=== PATIENT | female | born 1980 | race Caucasian/White ===

== ENCOUNTER 2019-06-12 14:59 | Inpatient (IN) | payer OTHER ==
[~2019-06-12] VITALS: Ht 160 cm; Wt 63.5 kg
[2019-06-12 15:33] VITALS: BP 114/71
[2019-06-12] MEDS ORDERED: KETOROLAC 60 MG/2 ML VIAL IM ONE (16:00)
[2019-06-12] MEDS ORDERED: ONDANSETRON 4 MG ODT PO ONE (16:00)
--- NOTE | 2019-06-12 16:00 | NUR ---
C/O MID ABDOMINAL PAIN 03/12 WITH N/V SINCE YESTERDAY. SEEN AT [facility] FOR US AND WAS TOLD SHE HAD GALLSTONE X 3 MONTHS AGO. BOWEL SOUNDS ACTIVE IN ALL 4 QUADRANTS. ABDOMEN SOFT AND FLAT. MILD TENDERNESS. PT ALERT AND AWAKE. VS STABLE. AMBUALTORY PMH- GALLSTONES HISTORY RX- DENIES
--- NOTE | 2019-06-12 16:10 | NUR ---
LAB AT BEDSIDE
--- NOTE | 2019-06-12 16:15 | NUR ---
TORADOL IM AND ZOFRAN PO ADMINISTERED
[2019-06-12 16:19] LABS: BASOPHILS # (AUTO) 0.1 K/uL (0.00-0.22); BASOPHILS % (AUTO) 0.5 % (0.0-2.0); EOSINOPHILS # (AUTO) 0.1 K/uL (0-0.4); EOSINOPHILS % (AUTO) 1.2 % (0.0-4.0); HEMATOCRIT 38.8 % (36-48); HEMOGLOBIN 12.7 g/dL (12.0-16.0); LYMPHOCYTES # (AUTO) 1.2 K/uL (2.5-16.5); LYMPHOCYTES % (AUTO) 9.7 % (20.5-51.1); MEAN CORPUSCULAR HEMOGLOBIN 30 pg (27-31); MEAN CORPUSCULAR HGB CONC 33 g/dL (33-37); MEAN CORPUSCULAR VOLUME 91.2 fL (80-94); MONOCYTES # (AUTO) 0.6 K/uL (0.8-1.0); MONOCYTES % (AUTO) 4.9 % (1.7-9.3); NEUTROPHILS % (AUTO) 83.7 % (42.2-75.2); PLATELET COUNT (AUTO) 369 K/uL (140-450); RED BLOOD CELL COUNT(AUTO) 4.25 MIL/uL (4.20-5.40); RED CELL DISTRIBUTION WIDTH 13.4 % (11.6-13.7)
--- NOTE | 2019-06-12 16:22 | NUR ---
PT MOVED TO BED 12
--- NOTE | 2019-06-12 16:38 | NUR ---
PAIN 4/10 PER PATIENT. NADR
[2019-06-12 17:11] LABS: ALBUMIN 3.9 g/dL (3.4-5.0); ANION GAP 13.7 (8-16); CARBON DIOXIDE 28.8 mmol/L (21-32); CREATININE 0.6 mg/dL (0.6-1.3); POTASSIUM 4.5 mmol/L (3.5-5.1); TOTAL BILIRUBIN 3.4 mg/dL (0.0-1.0)
[2019-06-12] MEDS: NACL 0.9% 1,000 ML IV SCH (17:39)
[2019-06-12] MEDS ORDERED: MORPHINE SULFATE 2 MG/ML SYR IVP PRN (17:40)
[2019-06-12] MEDS ORDERED: DOCUSATE SODIUM 100 MG GELCAP PO PRN (17:40)
[2019-06-12] MEDS ORDERED: ACETAMINOPHEN 325 MG TAB PO PRN (17:40)
[2019-06-12] MEDS ORDERED: HYDROcodone/APAP 7.5/325 MG 1 TAB PO PRN (17:40)
--- NOTE | 2019-06-12 17:47 | NUR ---
US AT BEDSIDE
--- NOTE | 2019-06-12 18:15 | NUR ---
Patient will be admitted to care of [facility]. Admited to MEDSUR. Will go to room 111A. Belongings list completed. Report to ADRIENNE ROSALES. PT NPO EXCEPT MEDS PT REPORTS NO HOME MEDS BELONGS WITH PT
--- NOTE | 2019-06-12 18:15 | NUR ---
PT ARRIVE UNIT VIA WHEEL CHAIR ACCOMPANIED BY ER NURSE MAEGAN. PT IS AAOX4, ABLE TO COMMUNICATE APPROPRIATELY. RESPIRATION EVEN AND UNLABORED ON RA. STATED PAIN IS WITHIN HER TOLERABLE LIMIT AT THIS TIME. DENIED NAUSEA, VOMITING AND SOB. NO SIGNS OF DISTRESS NOTED. IV ON L HAND 22G, CLEAN AND INTACT, SL. SKIN CLEAN AND DRY. PT IS ABLE TO AMBULATE INDEPENDENTLY AND CONTINENT. ASSISTED PT TO TRANSFER TO BED AND POSITIONED COMFORTABLY. ORIENTED PT TO THE ROOM, ON HOW TO USE THE CALL LIGHT, BATHROOM, LIGHTS, TV, AND TELEPHONE, PT VERBALIZED UNDERSTANDING. PT IS TALKING ON THE PHONE AT THIS TIME. NPO MAINTAINED AND SIGN POSTED ON DOOR. PT WAS AWARE THAT SHE IS NPO EXCEPT FOR MEDS. SAFETY MEASURES IN PLACE. BED IN LOW POSITION AND CALL LIGHT WITHIN REACH.
[2019-06-12 18:20] LABS: BILIRUBIN,URINE 3+ (NEGATIVE); BLOOD, URINE TRACE-I (NEGATIVE); LEUKOCYTE ESTERASE ,URINE TRACE (NEGATIVE); NITRITE, URINE NEGATIVE (NEGATIVE); UGLUCOSE NEGATIVE (NEGATIVE)
[2019-06-12 18:28] LABS: BARBITURATE, URINE NEG. ng/ml (NEG <=200); BENZODIAZEPINE, URINE NEG. ng/mL (NEG <=200); CANNABINOID, URINE NEG. ng/mL (NEG <=50); COCAINE, URINE NEG. ng/mL (NEG <=300); OPIATE, URINE NEG. ng/mL (NEG <=2000); PHENCYCLIDINE SCREEN,URINE NEG. ng/mL (NEG <=25)
[2019-06-12 18:43] LABS: APPEARANCE,URINE HAZY (CLEAR); COLOR,URINE AMBER (YELLOW)
[2019-06-12 18:47] LABS: RBC,URINE 0-5 /HPF (0-5); WBC,URINE NONE SEEN /HPF (0-5)
--- NOTE | 2019-06-12 18:48 | NUR ---
ADMINISTERED NS PER MD ORDER RUNNING AT 60 MLS/HR. MRSA NARES SWAB COLLECTED, VITAL SIGNS TAKEN: NO COMPLAINTS OF PAIN, 112/68, 98% O2 SAT, 16 RESPIRATION RATE, 78 HEART RATE, 97.6 TEMP.
--- NOTE | 2019-06-12 19:21 | NUR ---
ENDORSED REPORT TO PM NURSE AT BEDSIDE. PT AWAKE, RESTING IN BED, NO SIGNS OF DISTRESS, PT IS IN STABLE CONDITION.
--- NOTE | 2019-06-12 19:22 | NUR ---
RECEIVED BEDSIDE REPORT FROM AM SHIFT NURSE. PATIENT IS LYING ON BED. NO SOB OR DISTRESS NOTED. IV ACCESS ON LEFT HAND 22 GAUGE, PATENT AND INTACT. PATIENT IS AMBULATORY. SKIN IS INTACT. BOARD UPDATED. INITIAL ASSESSMENT DONE. CALL LIGHT PLACED WITHIN PATIENT REACH. WILL CONTINUE TO MONITOR PATIENT.
[2019-06-12 19:37] LABS: PROTHROMBIN TIME 9.6 secs (10.8-13.4)
[2019-06-12 19:40] LABS: CHOL/HDL RATIO 3.9 (1-4.5); FREE T4 (FREE THYROXINE) 1.13 ng/dL (0.76-1.46); MAGNESIUM 2.2 mg/dL (1.8-2.4); PHOSPHORUS 3.4 mg/dL (2.5-4.9); THYROID STIMULATING HORMONE 1.18 uIU/mL (0.34-3.74)
[2019-06-12] MEDS ORDERED: ONDANSETRON 4 MG/2 ML VIAL IM/IVP PRN (20:00)
[2019-06-12] MEDS ORDERED: cefTRIAXone 1,000 MG VIAL ONE (20:47)
--- NOTE | 2019-06-12 22:28 | NUR ---
PATIENT OUT OF UNIT FOR CT SCAN OF ABDOMEN/PELVIS.
--- NOTE | 2019-06-12 22:40 | NUR ---
PATIENT RETURNED BACK TO UNIT FROM CT SCAN OF ABDOMEN/PELVIS. NO DISTRESS NOTED.
[2019-06-13 00:15] VITALS: BP 110/68
--- NOTE | 2019-06-13 00:20 | NUR ---
ROUNDS DONE. NO DISTRESS NOTED. CALL LIGHT WITHIN PATIENT REACH. WILL CONTINUE TO MONITOR PATIENT.
--- NOTE | 2019-06-13 04:26 | NUR ---
ROUNDS DONE. VISIBLE CHEST RISE AND FALL NOTED. CALL LIGHT WITHIN PATIENT REACH. WILL CONTINUE TO MONITOR PATIENT.
[2019-06-13] MEDS: NACL 0.9% 1,000 ML IV SCH ×2 (05:48→08:15)
--- NOTE | 2019-06-13 07:22 | NUR ---
ENDORSED TO AM SHIFT NURSE FOR CONTINUITY OF CARE. PATIENT IN STABLE CONDITION AT THIS TIME. CALL LIGHT WITHIN PATIENT REACH.
--- NOTE | 2019-06-13 07:23 | NUR ---
RECEIVED REPORT FROM TEACHER NURSE AT BEDSIDE FOR CONTINUITY OF CARE. PATIENT IS LYING ON BED. NO SOB OR DISTRESS NOTED. PATIENT STATES TOLERABLE PAIN AT THIS TIME. IV ACCESS ON LEFT HAND 22 GAUGE, PATENT AND INTACT, INFUSING IVF WELL. PATIENT IS AMBULATORY. SKIN IS INTACT. BOARD UPDATED. UPDATED PATIENT WITH PLAN OF CARE. SHE VERBALIZED UNDERSTANDING. CALL LIGHT PLACED WITHIN PATIENT'S REACH. WILL CONTINUE TO MONITOR PATIENT.
[2019-06-13 07:46] LABS: ANION GAP 11.6 (8-16); CARBON DIOXIDE 27.5 mmol/L (21-32); CREATININE 0.6 mg/dL (0.6-1.3); POTASSIUM 4.1 mmol/L (3.5-5.1)
[2019-06-13 08:00] VITALS: BP 105/63
[2019-06-13 08:11] LABS: BASOPHILS % (AUTO) 0.6 % (0.0-2.0); EOSINOPHILS # (AUTO) 0.3 K/uL (0-0.4); EOSINOPHILS % (AUTO) 3.5 % (0.0-4.0); HEMATOCRIT 36.7 % (36-48); HEMOGLOBIN 12.3 g/dL (12.0-16.0); LYMPHOCYTES # (AUTO) 2.1 K/uL (2.5-16.5); LYMPHOCYTES % (AUTO) 28.2 % (20.5-51.1); MEAN CORPUSCULAR HEMOGLOBIN 31 pg (27-31); MEAN CORPUSCULAR HGB CONC 33 g/dL (33-37); MEAN CORPUSCULAR VOLUME 91.7 fL (80-94); MONOCYTES # (AUTO) 0.5 K/uL (0.8-1.0); MONOCYTES % (AUTO) 7.3 % (1.7-9.3); NEUTROPHILS # (AUTO) 4.5 K/uL (1.8-7.7); NEUTROPHILS % (AUTO) 60.4 % (42.2-75.2); PLATELET COUNT (AUTO) 340 K/uL (140-450); RED BLOOD CELL COUNT(AUTO) 4.01 MIL/uL (4.20-5.40); RED CELL DISTRIBUTION WIDTH 13.4 % (11.6-13.7); WHITE BLOOD COUNT (AUTO) 7.4 K/uL (4.8-10.8)
[2019-06-13] MEDS: LACTOBACILLUS RHAMNOSUS GG 1 EACH CAP PO SCH (08:19)
[2019-06-13 08:22] LABS: ALBUMIN 3.4 g/dL (3.4-5.0); BILIRUBIN,DIRECT 2.8 mg/dL (0.0-0.3); TOTAL BILIRUBIN 3.6 mg/dL (0.0-1.0)
--- NOTE | 2019-06-13 08:59 | NUR ---
PATIENT IS SCREENED AND CATEGORIZED MODERATE NUTRITION RISK. PATIENT WILL BE SEEN WITHIN 3-5 DAY OF ADMISSION. 06/15/2019-06/17/[address]
--- NOTE | 2019-06-13 09:15 | NUR ---
CONSENT OBTAINED FOR PROCEDURE WITH DR. DIXON.
--- NOTE | 2019-06-13 09:30 | NUR ---
DR DIXON IN TO SPEAK TO PATIENT.
[2019-06-13] MEDS ORDERED: PROPOFOL 200 MG/20 ML VIAL IV ONE (09:45)
[2019-06-13] MEDS ORDERED: MEPERIDINE 25 MG/ML SYR IVP PRN (09:50)
[2019-06-13] MEDS ORDERED: diphenhydrAMINE 50 MG/ML VIAL IVP PRN (09:50)
[2019-06-13] MEDS: LACTATED RINGERS 1,000 ML IV SCH ×2 (09:50→18:10)
[2019-06-13] MEDS ORDERED: ONDANSETRON 4 MG/2 ML VIAL IVP PRN (09:50)
[2019-06-13] MEDS ORDERED: HYDROmorphone 1 MG/ML AMP IVP PRN (09:50)
--- NOTE | 2019-06-13 12:00 | NUR ---
PATIENT CAME BACK FROM PROCEDURE WITH DR. DIXON. WILL WAIT FOR NEW ORDERS. PATIENT SETTLED BACK IN BED, NO COMPLAINTS AT THIS TIME. VS WNL. CALL LIGHT WITHIN REACH, WILL CONTINUE TO MONITOR PATIENT.
--- NOTE | 2019-06-13 15:45 | NUR ---
DR BENSON IN TO SPEAK TO THE PATIENT. WILL WAIT FOR HIS RECOMMENDATIONS.
[2019-06-13 16:00] VITALS: BP 109/68
--- NOTE | 2019-06-13 18:05 | NUR ---
PATIENT SITTING UP IN BED EATING DINNER. PATIENT AWARE OF NPO AFTER MIDNIGHT WITH PROCEDURE WITH DR. BENSON AT 1030.
--- NOTE | 2019-06-13 19:09 | NUR ---
REPORT GIVEN TO RETAIL MARKETING EXECUTIVE NURSE AT BEDSIDE FOR CONTINUITY OF CARE. PATIENT IN STABLE CONDITION.
--- NOTE | 2019-06-13 19:10 | NUR ---
RECEIVED BEDSIDE REPORT FROM AM SHIFT NURSE ANAYA. PATIENT IS SITTING UP ON BED WITH FAMILY MEMBER AT BEDSIDE.NO DISTRESS OR SOB NOTED. ON ROOM AIR. IV ACCESS ON LEFT HAND 22 GAUGE, PATENT AND INTACT. PATIENT IS AMBULATORY. BED IN LOW, SAFETY MEASURES IN PLACE. INITIAL ASSESSMENT DONE. CALL LIGHT WITHIN PATIENT REACH. WILL CONTINUE TO MONITOR PATIENT.
--- NOTE | 2019-06-13 20:45 | NUR ---
IV LINE REINSERTED DUE TO INFILTRATION AT CURRENT SITE. NEW SITE RIGHT HAND 24 GAUGE. PATENT,INTACT AND INFUSING WELL.
--- NOTE | 2019-06-13 23:44 | NUR ---
ROUNDS DONE. PATIENT REPOSITIONED AT THIS TIME. NO DISTRESS NOTED. VISIBLE CHEST RISE AND FALL NOTED. WILL CONTINUE TO MONITOR PATIENT.
--- NOTE | 2019-06-14 02:19 | NUR ---
ROUNDS DONE. VISIBLE CHEST RISE AND FALL NOTED. NO SOB OR DISTRESS. CALL LIGHT WITHIN PATIENT REACH. WILL CONTINUE TO MONITOR PATIENT.
[2019-06-14] MEDS: DEXT 5% / NACL 0.45% 1,000 ML IV SCH ×2 (03:13→19:20)
--- NOTE | 2019-06-14 04:50 | NUR ---
ROUNDS DONE. VISIBLE CHEST RISE AND FALL NOTED. WILL CONTINUE TO MONITOR PATIENT.
[2019-06-14 06:18] LABS: ALBUMIN 2.8 g/dL (3.4-5.0); ANION GAP 10.4 (8-16); CARBON DIOXIDE 26.5 mmol/L (21-32); CREATININE 0.5 mg/dL (0.6-1.3); MAGNESIUM 1.7 mg/dL (1.8-2.4); PHOSPHORUS 3.1 mg/dL (2.5-4.9); POTASSIUM 3.9 mmol/L (3.5-5.1); TOTAL BILIRUBIN 0.8 mg/dL (0.0-1.0)
--- NOTE | 2019-06-14 07:20 | NUR ---
ENDORSED TO AM SHIFT NURSE FOR CONTINUITY OF CARE. PATIENT IN STABLE CONDITION. CALL LIGHT WITHIN PATIENT REACH.
--- NOTE | 2019-06-14 07:43 | NUR ---
RECEIVED BEDSIDE REPORT FROM PM RN PT APPEARS STABLE AND IN NO APPARENT DISTRESS. ALL SAFETY MEASURES ARE IN PLACE WILL CONTINUE TO MONITOR. ALL SAFETY MEASURES ARE IN PLACE WILL CONTINUE TO MONITOR.
[2019-06-14 08:15] VITALS: BP 106/60
[2019-06-14] MEDS: LACTOBACILLUS RHAMNOSUS GG 1 EACH CAP PO SCH (09:00)
--- NOTE | 2019-06-14 09:16 | NUR ---
FREQUENT ROUNDING ON PT PT APPEARS STABLE AND IN NO APPARENT DISTRESS. ALL SAFETY MEASURES ARE IN PLACE WILL CONTINUE TO MONITOR.
--- NOTE | 2019-06-14 11:22 | NUR ---
DISCHARGE PLANNING: A 39 Y/O FEMALE PATIENT FROM HOME, WHO CAME IN DUE TO ABDOMINAL PAIN. PAST MEDICAL HISTORY INCLUDE CHOLELITHIASIS. INITIAL DIAGNOSIS OF SYMPTOMATIC CHOLELITHIASIS. CURRENT LABS INCLUDE WBC 7.4, H/H 12.3/36.7, NA/K 139/3.9, BUN/CREA 6/0.5, ALK PHOS 346, AST/ALT 80/346. GALLBLADDER U/S SHOWED CHOLELITHIASIS. CXR NEGATIVE. ABD/PELVIS CT SHOWED ACUTE CHOLECYSTITIS. ERCP DONE. GI CONSULT WITH DR. DIXON FOR POSSIBLE CHOLEDO. SURGICAL CONSULT WITH DR. BENSON FOR CHOLELITHIASIS. FOR [facility] TODAY WITH DR. BENSON. DC PLAN TO HOME ONCE STABLE FOR DC. Addendum: 06/15/19 at 1152 by Karoline Laguna CM ON CLEAR LIQUID DIET. FOR POSSIBLE DC TODAY.
--- NOTE | 2019-06-14 11:37 | NUR ---
FREQUENT ROUNDING ON PT PT APPEARS STABLE AND IN NO APPARENT DISTRESS. ALL SAFETY MEASURES ARE IN PLACE PT HAS BEEN NPO SINCE MIDNIGHT AWAITING OR PROCEDURE
[2019-06-14] MEDS ORDERED: BUPIVACAINE-MPF/EPI 0.25% 30 ML VIAL INJ ONE (11:53)
--- NOTE | 2019-06-14 12:10 | NUR ---
PT TAKEN OFF UNIT TO OR FOR PROCEDURE.
[2019-06-14] MEDS ORDERED: NEOSTIGMINE 1:1000 10 MG/10 ML VIAL ONE (12:32)
[2019-06-14] MEDS ORDERED: SEVOFLURANE 250 ML BTL INH ONE (12:32)
[2019-06-14] MEDS ORDERED: ceFAZolin 1,000 MG VIAL ONE (12:32)
[2019-06-14] MEDS ORDERED: fentaNYL 0.05 MG/ML VIAL ONE (12:32)
[2019-06-14] MEDS ORDERED: PROPOFOL 200 MG/20 ML VIAL IV ONE (12:32)
[2019-06-14] MEDS ORDERED: ONDANSETRON 4 MG/2 ML VIAL ONE (12:32)
[2019-06-14] MEDS ORDERED: DEXAMETHASONE 4 MG/ML VIAL ONE (12:32)
[2019-06-14] MEDS ORDERED: ROCURONIUM 50 MG/5 ML VIAL IV ONE (12:32)
[2019-06-14] MEDS ORDERED: KETOROLAC 30 MG/ML VIAL ONE (12:32)
[2019-06-14] MEDS ORDERED: GLYCOPYRROLATE 0.2 MG/ML VIAL ONE (12:32)
[2019-06-14] MEDS: LACTATED RINGERS 1,000 ML IV SCH ×2 (13:14→21:34)
[2019-06-14] MEDS ORDERED: diphenhydrAMINE 50 MG/ML VIAL IVP PRN (13:15)
[2019-06-14] MEDS ORDERED: HYDROmorphone 1 MG/ML AMP IVP PRN (13:15)
[2019-06-14] MEDS ORDERED: MEPERIDINE 25 MG/ML SYR IVP PRN (13:15)
[2019-06-14] MEDS ORDERED: ONDANSETRON 4 MG/2 ML VIAL IVP PRN (13:15)
[2019-06-14] MEDS ORDERED: HYDROmorphone PFS 2 MG/ML SYR ONE (14:21)
--- NOTE | 2019-06-14 14:55 | NUR ---
PT ARRIVED BACK ON THE UNIT FROM OR PT AWAKE AND ALERT. ALL SAFETY MEASURES ARE IN PLACE WILL CONTINUE TO MONITOR.
--- NOTE | 2019-06-14 15:34 | NUR ---
FREQUENT ROUNDING ON PT PT APPEARS STABLE AND IN NO APPARENT DISTRESS. ALL SAFETY MEASURES ARE IN PLACE WILL CONTINUE TO MONITOR
[2019-06-14 16:41] VITALS: BP 108/63
--- NOTE | 2019-06-14 17:34 | NUR ---
FREQUENT ROUNDING ON PT PT APPEARS STABLE AND IN NO APPARENT DISTRESS. ALL SAFETY MEASURES ARE IN PLACE WILL CONTINUE TO MONITOR.
--- NOTE | 2019-06-14 19:25 | NUR ---
ENDORSED PT TO PM RN ALL SAFETY MEASURES ARE IN PLACE
--- NOTE | 2019-06-14 19:26 | NUR ---
RECEIVED BEDSIDE REPORT FROM AM SHIFT NURSE. PATIENT IS LYING ON BED WATCHING TV. NO SOB OR DISTRESS NOTED.IV ACCESS ON LEFT HAND 20 GAUGE AND RIGHT HAND 24 GAUGE, PATENT AND INTACT. PATIENT IS AMBULATORY. SKIN IS INTACT. BED IN LOW, SAFETY MEASURES IN PLACE.CALL LIGHT WITHIN PATIENT REACH. WILL CONTINUE TO MONITOR PATIENT.
[2019-06-14] MEDS ORDERED: MAGNESIUM OXIDE 400 MG TAB PO SCH (21:00)
--- NOTE | 2019-06-14 21:58 | NUR ---
MAG OX 800MG GIVEN AT THIS TIME. WILL CONTINUE TO MONITOR PATIENT.
[2019-06-15 00:24] VITALS: BP 102/67
[2019-06-15] MEDS: DEXT 5% / NACL 0.45% 1,000 ML IV SCH (00:57)
--- NOTE | 2019-06-15 01:45 | NUR ---
WOUND ASSESSMENT DONE. SURGICAL INCISIONS COVERED WITH 4 BAND AIDS. NO REDNESS OR DRAINAGE NOTED. PT STABLE.
--- NOTE | 2019-06-15 04:06 | NUR ---
ROUNDS DONE. VISIBLE CHEST RISE AND FALL NOTED. CALL LIGHT WITHIN PATIENT REACH. WILL CONTINUE TO MONITOR PATIENT.
[2019-06-15] MEDS: LACTATED RINGERS 1,000 ML IV SCH ×2 (05:05→09:10)
[2019-06-15 06:15] LABS: BASOPHILS % (AUTO) 0.2 % (0.0-2.0); EOSINOPHILS % (AUTO) 0.2 % (0.0-4.0); HEMATOCRIT 33.9 % (36-48); HEMOGLOBIN 11.2 g/dL (12.0-16.0); LYMPHOCYTES # (AUTO) 2.6 K/uL (2.5-16.5); LYMPHOCYTES % (AUTO) 21.3 % (20.5-51.1); MEAN CORPUSCULAR HEMOGLOBIN 30 pg (27-31); MEAN CORPUSCULAR HGB CONC 33 g/dL (33-37); MONOCYTES # (AUTO) 0.6 K/uL (0.8-1.0); MONOCYTES % (AUTO) 5.2 % (1.7-9.3); NEUTROPHILS % (AUTO) 73.1 % (42.2-75.2); PLATELET COUNT (AUTO) 330 K/uL (140-450); RED BLOOD CELL COUNT(AUTO) 3.73 MIL/uL (4.20-5.40); WHITE BLOOD COUNT (AUTO) 12.4 K/uL (4.8-10.8)
--- NOTE | 2019-06-15 06:37 | NUR ---
PATIENT IN STABLE CONDITION. CALL LIGHT WITHIN PATIENT REACH. WILL ENDORSE TO AM SHIFT NURSE FOR CONTINUITY OF CARE.
[2019-06-15 06:40] LABS: MAGNESIUM 1.7 mg/dL (1.8-2.4); PHOSPHORUS 3.2 mg/dL (2.5-4.9)
[2019-06-15 06:44] LABS: ALBUMIN 2.9 g/dL (3.4-5.0); ANION GAP 7.8 (8-16); CARBON DIOXIDE 28.8 mmol/L (21-32); CREATININE 0.5 mg/dL (0.6-1.3); POTASSIUM 3.6 mmol/L (3.5-5.1); TOTAL BILIRUBIN 0.6 mg/dL (0.0-1.0)
--- NOTE | 2019-06-15 07:25 | NUR ---
RECEIVED BEDSIDE REPORT FROM DRIVER LICENSE TECHNICIAN NURSE. PT IS AWAKE AND ALERT, NO S/S OF DISTRESS OR SOB. ON ROOM AIR, SKIN INTACT ASIDE FROM 4 ABD INCISIONS S/P LAP DALI DONE ON 06/14. TWO IV SITES: R HAND 24 G, AND L HAND 20 G INFUSING D5 1/2 NS 60 ML/HR. CALL LIGHT IS WITHIN REACH. WILL CONTINUE TO MONITOR.
[2019-06-15 08:00] VITALS: BP 111/62
[2019-06-15] MEDS: LACTOBACILLUS RHAMNOSUS GG 1 EACH CAP PO SCH (10:12)
--- NOTE | 2019-06-15 10:20 | NUR ---
AM MED ADMINISTERED, PT TOLERATED WELL. PT C/O MILD 3/10 ABD PAIN, PRN TYLENOL ADMINISTERED.
[2019-06-15] MEDS ORDERED: CIPR500T4 PO (10:27)
[2019-06-15] MEDS ORDERED: IBUP-2213 PO (10:46)
--- NOTE | 2019-06-15 13:30 | NUR ---
PT HAS DC'D. DC INSTRUCTIONS AND PRESCRIPTIONS WERE GIVEN. PT VERBALIZED UNDERSTANDING. IV SITE AND WRIST BAND REMOVED. FLU VACCINE DECLINED, PER PT IT IS UP TO DATE. PT LEFT WITH ALL HER BELONGINGS IN STABLE CONDITION.
== END 2019-06-15 13:30 | disposition home or self-care (01) | DRG 418 ==
LOC: MED 14:59 → MTU 17:39 → MMU 21:46
PROVIDERS: ADMIT General Practice; ATTEND General Practice
PROC: 0FC98ZZ Extirpation of Matter from Common Bile Duct, Via Natural or Artificial Opening Endoscopic (ICD-10-PCS; 2019-06-13)
PROC: BF101ZZ Fluoroscopy of Bile Ducts using Low Osmolar Contrast (ICD-10-PCS; 2019-06-13)
PROC: 0F798ZZ Dilation of Common Bile Duct, Via Natural or Artificial Opening Endoscopic (ICD-10-PCS; 2019-06-13)
PROC: 0FT44ZZ Resection of Gallbladder, Percutaneous Endoscopic Approach (ICD-10-PCS; principal; 2019-06-14 10:30)
DX: K80.62 Calculus of gallbladder and bile duct with acute cholecystitis without obstruction (principal); N39.0 Urinary tract infection, site not specified; E78.5 Hyperlipidemia, unspecified; D72.829 Elevated white blood cell count, unspecified; E80.6 Other disorders of bilirubin metabolism
CPT/HCPCS: 36415; 71045; 74330; 76705; 80048; 80053; 80076; 80305; 81001; 82374; 83036; 83605; 83690; 83735; 83880; 84100; 84439; 84443; 85025; 85610; 85730; 86677; 87081; 87086; 88304; 93005; 96372; 99285; C1769; C1773; J0690; J0696; J1100; J1170; J1885; J2270; J2405; J2704; J2710; J3010; J3490; J7030; J7060; Q0092; Q0162